=== PATIENT | female | born 1950 | race Caucasian/White ===

== ENCOUNTER 2016-10-31 14:10 | Inpatient (IN) | payer BC ==
[~2016-10-31] VITALS: Ht 170.2 cm; Wt 61.2 kg
[2016-10-31 14:10] VITALS: BP 106/63; PULSE 70; RESP 18; TEMP 98.4; O2SAT 99
--- NOTE | 2016-10-31 14:53 | NUR ---
Patient to ER bed 1 to gown for evaluation. Side rails up. Report given to
--- NOTE | 2016-10-31 14:57 | NUR ---
Pt reports having lower abd pain since yesterday. Pt states having nausea, vomiting, denies diarrhea. Lower abd pain tender to touch. Abd soft, warm skin on palpation. No other complaints noted. Addendum: 10/31/16 at 1538 by [email or web address] abd pain scale 8/10
--- NOTE | 2016-10-31 14:59 | NUR ---
ER Dr. Estrada at bedside examining patient.
[2016-10-31] MEDS ORDERED: NACL 0.9% 1,000 ML IV ONE (15:11)
[2016-10-31] MEDS ORDERED: KETOROLAC TROMETHAMINE 30 MG VIAL IVP ONE (15:15)
[2016-10-31 16:32] LABS: BASOPHILS % (AUTO) 0.3 % (0.0-2.0); HEMATOCRIT 40.1 % (36-48); HEMOGLOBIN 13.5 g/dL (12.0-16.0); LYMPHOCYTES # (AUTO) 0.5 K/uL (1.0-5.5); MEAN CORPUSCULAR HEMOGLOBIN 33 pg (27-31); MEAN CORPUSCULAR HGB CONC 34 % (32-36); MEAN CORPUSCULAR VOLUME 98 fL (79.0-98.0); MONOCYTES # (AUTO) 1.1 K/uL (0.0-1.0); NEUTROPHILS # (AUTO) 14.1 K/uL (1.8-7.7); NEUTROPHILS % (AUTO) 89.7 % (40.0-70.0); PLATELET COUNT (AUTO) 163 K/uL (130-430); RED BLOOD CELL COUNT(AUTO) 4.09 MIL/uL (4.2-6.2); RED CELL DISTRIBUTION WIDTH 12.2 % (9.0-15.0); WHITE BLOOD COUNT (AUTO) 15.7 K/uL (4.8-10.8)
[2016-10-31 16:38] LABS: CALCIUM 9.2 mg/dL (8.4-11.0); CHLORIDE 102 mmol/L (98-107); CREATININE 1.08 mg/dL (0.55-1.30); GFR AFRICAN AMERICAN 66 mL/min (>90); GLUCOSE 132 mg/dL (70-99); SODIUM SERUM 133 mmol/L (136-145); UREA NITROGEN, BLOOD 14 mg/dL (8-21)
[2016-10-31 16:39] LABS: ANION GAP < 3 (5-15)
[2016-10-31 16:44] LABS: ALANINE AMINOTRANSFERASE 82 U/L (12-78); ALBUMIN 3.6 g/dL (3.4-4.8); ASPARTATE AMINOTRANSFERASE 72 U/L (10-37); LIPASE 76 U/L (73-393); TOTAL BILIRUBIN 0.9 mg/dL (0.0-1.0); TOTAL PROTEIN, SERUM 7.1 g/dL (6.4-8.3)
[2016-10-31] MEDS ORDERED: PIPERACILLIN/TAZO 3.375 GM in NS 50 ML IV ONE (17:00)
--- NOTE | 2016-10-31 17:15 | NUR ---
Spoke w/ Dr. Estrada, stated will order blood cultures and lactic acids, will hold zosyn until drawn.
[2016-10-31] MEDS ORDERED: PIPERACILLIN/TAZOBACTAM 3.375 GM/VIAL (ZOSYN) IV ONE (17:17)
--- NOTE | 2016-10-31 17:20 | NUR ---
Stable condition, no distress noted.
[2016-10-31] MEDS ORDERED: LEVO175T7 PO (17:26)
[2016-10-31] MEDS ORDERED: CEL20 PO (17:26)
--- NOTE | 2016-10-31 17:26 | NUR ---
Medication reconciliation completed with information provided by patient. Any prior medication reconciliation on file was reviewed and corrected.
--- NOTE | 2016-10-31 17:27 | NUR ---
Patient's home medication sent home w/ , patient and educated that home medications can not be on floor and that admitting doctor will provide necessary medications.
[2016-10-31] MEDS ORDERED: ONDANSETRON HCL 4 MG/2 ML VIAL IVP PRN (17:45)
[2016-10-31] MEDS ORDERED: ACETAMINOPHEN 325 MG TABLET PO PRN (17:45)
[2016-10-31 18:00] LABS: BILIRUBIN,URINE NEGATIVE (NEGATIVE); BLOOD, URINE NEGATIVE (NEGATIVE); CLARITY/URINE CLEAR (CLEAR); COLOR,URINE YELLOW (YELLOW); GLUCOSE,URINE NEGATIVE (NEGATIVE); KETONES,URINE NEGATIVE (NEGATIVE); LEUKOCYTE ESTERASE ,URINE NEGATIVE (NEGATIVE); NITRITE, URINE NEGATIVE (NEGATIVE); PH,URINE 6.5 (5.0-8.0); PROTEIN URINE TRACE (NEGATIVE)
[2016-10-31 18:09] LABS: BACTERIA,URINE FEW /HPF (None Seen); MUCUS,URINE 2+ /LPF (None Seen); RBC,URINE 0-3 /HPF (0-3); WBC,URINE 0-3 /HPF (0-3)
--- NOTE | 2016-10-31 18:22 | NUR ---
Report given to admission nurse by Cliff TAVERAS, all questions addressed.
--- NOTE | 2016-10-31 18:26 | NUR ---
ADMISSION NOTE Received patient from ER via johny, received report from TEXTILE SUPERVISOR. Patient admitted with diagnosis of ACUTE CHOLECYSTITIS. Patient oriented to hospital routine, call light, toileting and safety-patient verbalized understanding.
[2016-10-31 18:28] VITALS: BP 93/55; PULSE 65; RESP 18; TEMP 98.5; O2SAT 96
--- NOTE | 2016-10-31 18:34 | NUR ---
CONSULTATION PAGED REASON FOR CONSULTATION:ACUTE ROWAN WAS CONSULT CALLED?Y PERSON WHO WAS NOTIFIED:ИВАН CONSULTING PHYSICIAN:ARTURO BELTRE (ERNESTINE VARGAS [employer]UTTER [employer] AT [phone] LEFT VOICEMAIL) CONING MACHINE OPERATOR SPECIALTY:GENERAL SURGEON CONING MACHINE OPERATOR PHONE NUMBER:[phone]
[2016-10-31] MEDS ORDERED: ALPR0.2583 PO (18:54)
--- NOTE | 2016-10-31 18:55 | NUR ---
CLOSING NOTE PATIENT IS CURRENTLY RESTING IN BED, IS AT BEDSIDE, STATED HE WILL BE TAKING ALL MEDICATIONS HOME, ALL NEEDS MET, WILL ENDORSE PATIENT TO TAPE CUTTING MACHINE OPERATOR NURSE, CALL REVELES LEFT NEXT TO PATIENT, BED IN LOWEST POSITION, BED ALARM ON, FALL PRECAUTION IN PLACE.
[2016-10-31] MEDS ORDERED: LEVO75TA7 PO (18:59)
--- NOTE | 2016-10-31 19:02 | NUR ---
HOME MEDICATIONS SENT HOME WITH PATIENT'S .
[2016-10-31 19:58] VITALS: BP 100/51; PULSE 66; RESP 18; TEMP 98.9; O2SAT 97
--- NOTE | 2016-10-31 19:59 | NUR ---
PM ASSESSMENT PT. A/OX4, VITAL SIGNS STABLE, NO DISTRESS NOTED, PT. REPORTS MILD PAIN TO LOWER ABDOMEN RATED "2/10 ACHING PAIN." PT. STATED "PAIN IS TOLERABLE, I DON'T WANT ANY PAIN MEDICATION RIGHT NOW." UPDATED WITH PLAN OF CARE. ASSISTED PT. TO BATHROOM, NOTED WITH SLOW STEADY GAIT. NURSES ASSISTANT WITH PT. TO ASSIST BACK TO BED.
[2016-10-31] MEDS: D5/0.45 NS 1,000 ML IV SCH (20:40)
[2016-10-31] MEDS: cefOXitin SODIUM 2 GM in D5W 100 ML IV SCH (20:40)
[2016-10-31] MEDS: PANTOPRAZOLE SODIUM 40 MG/VIAL (PROTONIX) IVP SCH (20:41)
--- NOTE | 2016-10-31 21:30 | NUR ---
RN ROUNDS PT. RESTING QUIETLY, VITAL SIGNS STABLE, NO DISTRESS NOTED, DENIES PAIN, CALL LIGHT WITHIN REACH, BED ALARM ON, BED IN LOWEST POSITION.
--- NOTE | 2016-10-31 23:30 | NUR ---
RN ROUNDS PT. RESTING QUIETLY, VITAL SIGNS STABLE, BP 97/53, DENIES DIZZINESS OR LIGHTHEADEDNESS, NO DISTRESS NOTED, DENIES PAIN, CALL LIGHT WITHIN REACH, BED ALARM ON, BED IN LOWEST POSITION.
[2016-11-01] VITALS (7 sets, daily range): BP systolic 97–112; BP diastolic 49–62; PULSE 59–67; RESP 16–18; TEMP 96.5–98.5; O2SAT 92–100
--- NOTE | 2016-11-01 01:30 | NUR ---
RN ROUNDS PT. RESTING QUIETLY, VITAL SIGNS STABLE, NO DISTRESS NOTED, DENIES PAIN, CALL LIGHT WITHIN REACH, BED ALARM ON, BED IN LOWEST POSITION.
--- NOTE | 2016-11-01 03:30 | NUR ---
RN ROUNDS PT. RESTING QUIETLY, VITAL SIGNS STABLE, NO DISTRESS NOTED, DENIES PAIN, CALL LIGHT WITHIN REACH, BED ALARM ON, BED IN LOWEST POSITION.
[2016-11-01] MEDS: MORPHINE 2 MG/ML INJ. SYRINGE IVP PRN ×2 (05:16→11:46)
--- NOTE | 2016-11-01 05:16 | NUR ---
PAIN PT. C/O OF MODERATE PAIN TO LOWER ABD RATED "6/10 ACHING PAIN", MORPHINE 2 MG IVP GIVEN ORDERED, WILL CONTINUE TO MONITOR.
--- NOTE | 2016-11-01 06:42 | NUR ---
CLOSING NOTES PT. RESTING QUIETLY, VITAL SIGNS STABLE, NO DISTRESS NOTED, DENIES PAIN. IV ACCESS PATENT AND BENIGN, CALL LIGHT WITHIN REACH.
[2016-11-01] MEDS: D5/0.45 NS 1,000 ML IV SCH ×2 (06:58→20:12)
[2016-11-01 07:10] LABS: ALBUMIN 2.8 g/dL (3.4-4.8); CALCIUM 8.4 mg/dL (8.4-11.0); CREATININE 1.05 mg/dL (0.55-1.30); TOTAL BILIRUBIN 0.8 mg/dL (0.0-1.0); TOTAL PROTEIN, SERUM 5.9 g/dL (6.4-8.3)
[2016-11-01 07:11] LABS: BASOPHILS % (AUTO) 0.1 % (0.0-2.0); EOSINOPHILS % (AUTO) 0.1 % (0.0-4.0); HEMOGLOBIN 11.7 g/dL (12.0-16.0); LYMPHOCYTES # (AUTO) 0.5 K/uL (1.0-5.5); MEAN CORPUSCULAR HEMOGLOBIN 33 pg (27-31); MEAN CORPUSCULAR HGB CONC 34 % (32-36); MEAN CORPUSCULAR VOLUME 99 fL (79.0-98.0); MONOCYTES # (AUTO) 0.8 K/uL (0.0-1.0); NEUTROPHILS # (AUTO) 11.3 K/uL (1.8-7.7); NEUTROPHILS % (AUTO) 89.8 % (40.0-70.0); PLATELET COUNT (AUTO) 146 K/uL (130-430); RED BLOOD CELL COUNT(AUTO) 3.53 MIL/uL (4.2-6.2); RED CELL DISTRIBUTION WIDTH 11.9 % (9.0-15.0); WHITE BLOOD COUNT (AUTO) 12.6 K/uL (4.8-10.8)
--- NOTE | 2016-11-01 08:10 | NUR ---
INITIAL NOTE PT RESTING, EASY TO AROUSE, ALERT AND OREINTED X4, NO S/S OF DISTRESS OR COMPLAINT OF PAIN, IV TO LEFT HAND PATENT AND INFUSING D51/2 NS AT ORDERED RATE, NO S/S OF INFILTRATION NOTED, SCDS IN PLACE, PLAN OF CARE DISCUSSED WITH PATIENT, PT VERBALIZED UNDERSTANDING, PT AWARE SHE IS NPO EXCEPT MEDICATIONS, PT IS AWARE THAT DIAGNOSTIC PROCEDURE IS SCHEDULED DIRECTOR PRISON FOR 9AM, PT MAY NOT HAVE PAIN MEDICATIONS BEFORE THAT TIME, SAFETY MEASURES IN PLACE, CALL LIGHT WITHIN REACH, WILL CONTINUE TO MONITOR
[2016-11-01] MEDS: cefOXitin SODIUM 2 GM in D5W 100 ML IV SCH ×2 (08:29→20:13)
[2016-11-01] MEDS: PANTOPRAZOLE SODIUM 40 MG/VIAL (PROTONIX) IVP SCH (08:29)
--- NOTE | 2016-11-01 09:05 | NUR ---
PATIENT PICKED UP FOR DIAGNOSTIC PROCEDURE, STABLE, NO S/S OF DISTRESS OR PAIN, WILL AWAIT RETURN
--- NOTE | 2016-11-01 09:40 | NUR ---
DR RODRIGUEZ MAKING ROUNDS, NEW ORDERS RECEIVED, PT AWARE, VERBALIZED UNDERSTANDING, WILL FOLLOW UP
[2016-11-01 09:58] LABS: INR 1.2 (0.8-1.2); PROTHROMBIN TIME 12.5 SECS (9.5-12.5)
--- NOTE | 2016-11-01 12:30 | NUR ---
DR MILES AT BEDSIDE, UPDATED PATIENT ON PLAN OF CARE, PT AGREED AND VERBALIZED UNDERSTANDING, WILL FOLLOW UPWITH CONSENT AND PREPARE FOR SURGERY
[2016-11-01] MEDS ORDERED: NS IRRIG SOLN 1000 ML IR ONE (14:00)
[2016-11-01] MEDS ORDERED: LR 1,000 ML IV.SOLN IV ONE (14:00)
[2016-11-01] MEDS ORDERED: SEVOFLURANE 15 MIN GAS INH ONE (14:00)
[2016-11-01] MEDS ORDERED: PROPOFOL 200MG/ 20ML VIAL (DIPRIVAN) IV ONE (14:00)
[2016-11-01] MEDS ORDERED: ONDANSETRON HCL 4 MG/2 ML VIAL ONE (14:00)
[2016-11-01] MEDS ORDERED: ROCURONIUM BROMIDE 10 MG/ML (ZEMURON) ONE (14:00)
[2016-11-01] MEDS ORDERED: fentaNYL CITRATE/PF 100 MCG/2 ML AMP ONE (14:00)
[2016-11-01] MEDS ORDERED: fentaNYL CITRATE 250 MCG/5 ML AMP ONE (14:00)
[2016-11-01] MEDS ORDERED: CEFAZOLIN 2 GM IVPB PREMIX 50 ML IV ONE (14:00)
[2016-11-01] MEDS ORDERED: MIDAZOLAM HCL 5 MG/5 ML VIAL ONE (14:00)
[2016-11-01] MEDS ORDERED: KETOROLAC TROMETHAMINE 30 MG VIAL ONE (14:00)
--- NOTE | 2016-11-01 14:30 | NUR ---
ROUNDS PT RESTING, NO S/S OF DISTRESS OR PAIN, EVEN RISE AND FALL OF CHEST NOTED, SAFETY MEASURES IN PLACE, CALL LIGHT WITHIN REACH, WILL CONTINUE TO MONITOR
--- NOTE | 2016-11-01 15:00 | NUR ---
CHG BATHE GIVEN, PATIENT READY FOR SURGERY, CONSENT SIGNED, PT AWARE AND AWAITING COMPUTER INSTRUCTOR, CALL LIGHT WITHIN REACH, WILL CONTINUE TO MONITOR
[2016-11-01 15:12] LABS: BILIRUBIN,URINE NEGATIVE (NEGATIVE); BLOOD, URINE NEGATIVE (NEGATIVE); CLARITY/URINE CLEAR (CLEAR); COLOR,URINE AMBER (YELLOW); GLUCOSE,URINE NEGATIVE (NEGATIVE); KETONES,URINE NEGATIVE (NEGATIVE); LEUKOCYTE ESTERASE ,URINE NEGATIVE (NEGATIVE); NITRITE, URINE NEGATIVE (NEGATIVE); PROTEIN URINE 2+ (NEGATIVE)
[2016-11-01 15:36] LABS: BACTERIA,URINE FEW /HPF (None Seen); HYALINE CASTS, URINE 0-10 /LPF (None Seen); MUCUS,URINE 2+ /LPF (None Seen)
--- NOTE | 2016-11-01 16:58 | NUR ---
PT PICKED UP BY OR FOR SURGERY. PT STABLE, AWAKE, ABLE TO MAKE NEEDS KNOWN, AT SIDE, WILL AWAIT RETURN
[2016-11-01] MEDS ORDERED: LR 1,000 ML IV SCH (17:25)
[2016-11-01] MEDS ORDERED: HYDROmorphone 2 MG/ML VIAL IVP PRN ×2 (17:30)
[2016-11-01] MEDS ORDERED: KETOROLAC TROMETHAMINE 30 MG VIAL IVP PRN (17:30)
[2016-11-01] MEDS ORDERED: HYDROmorphone 1 MG INJ. 1 MG/ML AMPUL IVP PRN ×2 (17:30→18:45)
[2016-11-01] MEDS ORDERED: IOHEXOL 50 ML IV ONE (17:32)
[2016-11-01] MEDS ORDERED: HYDROcodone/ACETAMIN 5-325 MG TAB (NORCO/ VICODIN) PO PRN ×2 (18:45)
[2016-11-01] MEDS ORDERED: ACETAMINOPHEN 325 MG TABLET PO PRN (18:45)
[2016-11-01] MEDS ORDERED: ONDANSETRON HCL 4 MG/2 ML VIAL IVP PRN (18:45)
--- NOTE | 2016-11-01 19:00 | NUR ---
CLOSING NOTE PT STILL NOT IN ROOM, REPORT GIVEN TO FOLLOWING SHIFT.
--- NOTE | 2016-11-01 19:30 | NUR ---
Patient back from PACU. A/O x 3, no SOB, mild nauseated, denied pain. Skin warm to touch, 3 dressing on ABD noted. SCD in place, +2 redial and pedal pulses. Call light within reach, bed at lowest position, family at bedside, will continue to monitor patient. VS 112/62/61, 18, 98, 94% FA.
--- NOTE | 2016-11-01 19:48 | NUR ---
C/o mild nauseated, ice chips and apple juice x 2 provided. Family at bedside. Patient denied pain.
[2016-11-01 19:55] LABS: HEMATOCRIT 37.1 % (36-48); HEMOGLOBIN 12.4 g/dL (12.0-16.0)
[2016-11-01] MEDS: FAMOTIDINE PF 20 MG/2 ML VIAL IVP SCH (20:13)
--- NOTE | 2016-11-01 22:00 | NUR ---
Rounds Resting/sleeping in bed, arousable. No SOB, no chest pain. Denied pain or N/V. Call light within reach, will continue to monitor patient.
--- NOTE | 2016-11-02 00:36 | NUR ---
Rounds Sleeping in bed. No SOB, no chest pain. No grimacing. Call light within reach, will continue to monitor patient.
--- NOTE | 2016-11-02 02:06 | NUR ---
Rounds Awake in bed, stretching legs, denied SOB, chest pain, pain or N/V. Call light within reach, will continue to monitor patient.
--- NOTE | 2016-11-02 04:33 | NUR ---
Rounds Awake in bed. No SOB, no chest pain, denied pain. A/O x 3. Noted IV at L hand infiltrated. Started a new IV at R hand #22 x 2 attempts with good blood return. DC old IV from L hand, IV catheter intact. Elevated patient L hand/arm with one pillow. Patient tolerated well. Provided cranberry juice x 2 and orange juice x 1. Educated patient to use Incentive spirometer (IS) 10 times while awake to prevent lung collapse. Patient is able to inhale 500 ml via IS. Patient stated mild nauseated, but refused med at this time. Call light within reach, bed at lowest position, will continue to monitor patient.
[2016-11-02 04:51] VITALS: BP 99/53; PULSE 60; RESP 16; TEMP 97.7; O2SAT 94
[2016-11-02 06:27] LABS: BASOPHILS % (AUTO) 0.1 % (0.0-2.0); EOSINOPHILS % (AUTO) 0.1 % (0.0-4.0); HEMATOCRIT 32.5 % (36-48); LYMPHOCYTES # (AUTO) 0.3 K/uL (1.0-5.5); MEAN CORPUSCULAR HEMOGLOBIN 33 pg (27-31); MEAN CORPUSCULAR HGB CONC 34 % (32-36); MEAN CORPUSCULAR VOLUME 99 fL (79.0-98.0); MONOCYTES # (AUTO) 0.3 K/uL (0.0-1.0); MONOCYTES % (AUTO) 3.1 % (1.7-9.3); NEUTROPHILS # (AUTO) 8.9 K/uL (1.8-7.7); NEUTROPHILS % (AUTO) 93.7 % (40.0-70.0); PLATELET COUNT (AUTO) 141 K/uL (130-430); RED BLOOD CELL COUNT(AUTO) 3.29 MIL/uL (4.2-6.2); RED CELL DISTRIBUTION WIDTH 11.7 % (9.0-15.0); WHITE BLOOD COUNT (AUTO) 9.5 K/uL (4.8-10.8)
--- NOTE | 2016-11-02 06:34 | NUR ---
Rounds Resting in bed, easy to be awaken. No SOB, no chest pain, denied pain, no N/V. Skin warm to touch, L hand/FA swollen. Elevated L hand/FA with one pillow. IV at R hand patent, no s/s of infection or infiltration. Call light within reach, SCD in place. Call light and incentive spirometer (IS) within reach, bed at lowest position, will continue to monitor patient.
[2016-11-02 06:43] LABS: ALBUMIN 2.5 g/dL (3.4-4.8); CALCIUM 8.3 mg/dL (8.4-11.0); CREATININE 1.08 mg/dL (0.55-1.30); POTASSIUM 4.5 mmol/L (3.5-5.1); TOTAL BILIRUBIN 0.4 mg/dL (0.0-1.0); TOTAL PROTEIN, SERUM 5.9 g/dL (6.4-8.3)
[2016-11-02] MEDS: D5/0.45 NS 1,000 ML IV SCH (06:59)
--- NOTE | 2016-11-02 07:32 | NUR ---
Closing note Patient resting/sleeping in bed. No SOB, no chest pain, no grimacing. Bed at lowest position, call light within reach. Report given to incoming nurse regarding patient condition, s/p surgery, SCD and IS use.
[2016-11-02 08:00] VITALS: BP 83/54; PULSE 57; RESP 16; TEMP 97.3
--- NOTE | 2016-11-02 08:00 | NUR ---
initial notes rec patient with hob elevated.ivf infusing well on the r hand. no infiltration noted. 2 abdominal sites on the abd dry and intact. no bleeding noted. resp easy and unlabored and no sob noted. ecourage patient to ambulate. denies pain. bed in low position and call light within reached. knows when to call for assistance.
[2016-11-02] MEDS: cefOXitin SODIUM 2 GM in D5W 100 ML IV SCH (08:58)
[2016-11-02] MEDS: FAMOTIDINE PF 20 MG/2 ML VIAL IVP SCH (09:10)
--- NOTE | 2016-11-02 09:15 | NUR ---
rounds seen by dr busch at bedside and with orders.
--- NOTE | 2016-11-02 11:00 | NUR ---
rounds ambulating on the hallway and lev well accompanied by nagat and .
[2016-11-02 12:07] VITALS: PULSE 57; RESP 18; TEMP 97.3
[2016-11-02 12:15] VITALS: BP 94/59; PULSE 58; RESP 19; TEMP 97.3; O2SAT 97
--- NOTE | 2016-11-02 13:11 | NUR ---
closing notes pt was discharged accompanied by . instruction re care of the incision provided, her prescription . ivl was removed and ib was put in the shredder. was wheeled outside by tawnya amor. stable , needs attended.
== END 2016-11-02 13:00 | disposition home or self-care (01) | DRG 419 ==
LOC: SED 14:10 → SMU 17:38
PROVIDERS: ADMIT Internal Medicine; ATTEND Internal Medicine
PROC: 0FN44ZZ Release Gallbladder, Percutaneous Endoscopic Approach (ICD-10-PCS; 2016-11-01)
PROC: BF101ZZ Fluoroscopy of Bile Ducts using Low Osmolar Contrast (ICD-10-PCS; 2016-11-01)
PROC: 0FT44ZZ Resection of Gallbladder, Percutaneous Endoscopic Approach (ICD-10-PCS; principal; 2016-11-01 17:30)
DX: K80.00 Calculus of gallbladder with acute cholecystitis without obstruction (principal); K82.8 Other specified diseases of gallbladder; F41.9 Anxiety disorder, unspecified; E03.9 Hypothyroidism, unspecified; F32.9 Major depressive disorder, single episode, unspecified; Z79.899 Other long term (current) drug therapy
CPT/HCPCS: 36415; 71020-TC; 76000; 78226; 80053; 81000-TC; 83605; 83690-TC; 83735-TC; 85018-TC; 85025; 85610-TC; 87040-TC; 87081; 88304; 93005; 96361; 96365; 96375; 99285; A9537; C1727; C1758; C9113; J0690; J0694; J1885; J2250; J2270; J2405; J2543; J2704; J3010; J3490; J7030; J7060; J7120; Q9967

== ENCOUNTER 2018-09-13 21:02 | Inpatient (IN) | payer OTHER, MEDICARE ==
[~2018-09-13] VITALS: Ht 167.6 cm; Wt 56.4 kg
[~2018-09-13 21:02] MED LIST: ALPR0.25 PO; CEL20 PO; LEVO175T7 PO; LEVO75TA7 PO
[2018-09-13 21:06] VITALS: BP_SYST 125
[2018-09-13] MEDS ORDERED: NACL 0.9% 1,000 ML IV ONE (21:24)
[2018-09-13] MEDS ORDERED: ASPIRIN 81 MG TAB.CHEW PO ONE (21:30)
[2018-09-13] MEDS ORDERED: NITROGLYCERIN 1 INCH (GM) OINT. TP ONE (21:30)
[2018-09-13 22:00] LABS: WHITE BLOOD COUNT (AUTO) 3.1 K/uL (4.8-10.8)
[2018-09-13 22:01] LABS: HEMATOCRIT 34.5 % (36-48); HEMOGLOBIN 11.9 g/dL (12.0-16.0); MEAN CORPUSCULAR HEMOGLOBIN 35 pg (27-31); MEAN CORPUSCULAR HGB CONC 35 % (32-36); MEAN CORPUSCULAR VOLUME 100 fL (79.0-98.0); PLATELET COUNT (AUTO) 173 K/uL (130-430); RED BLOOD CELL COUNT(AUTO) 3.46 MIL/uL (4.2-6.2); RED CELL DISTRIBUTION WIDTH 12.6 % (9.0-15.0)
[2018-09-13 22:03] LABS: ANION GAP 9 (5-15); CHLORIDE 104 mmol/L (98-107); CREATININE 1.01 mg/dL (0.55-1.30); GLUCOSE 93 mg/dL (70-99); POTASSIUM 3.7 mmol/L (3.5-5.1); SODIUM SERUM 139 mmol/L (136-145); UREA NITROGEN, BLOOD 27 mg/dL (8-21)
[2018-09-13 22:06] LABS: GFR AFRICAN AMERICAN 71 mL/min (>90)
[2018-09-13 22:07] LABS: PROTHROMBIN TIME 10.5 SECS (9.5-12.5)
[2018-09-13 22:12] LABS: ALANINE AMINOTRANSFERASE 112 U/L (12-78); ALBUMIN 3.6 g/dL (3.4-4.8); ASPARTATE AMINOTRANSFERASE 160 U/L (10-37); TOTAL BILIRUBIN 0.3 mg/dL (0.0-1.0)
[2018-09-13] MEDS ORDERED: MORPHINE 4 MG/ML INJ. SYRINGE IVP ONE (23:00)
[2018-09-13 23:02] LABS: BAND % (MANUAL) 5 % (0-6); BASOPHILS % (MANUAL) 0 % (0-2); EOSINOPHILS % (MANUAL) 1 % (0-7); LYMPHOCYTES % (MANUAL) 54 % (20-46); MONOCYTES % (MANUAL) 8 % (0-11)
[2018-09-13] MEDS ORDERED: MORPHINE 4 MG/ML INJ. SYRINGE IVP PRN (23:45)
[2018-09-13] MEDS ORDERED: HYDROcodone/ACETAMIN 5-325 MG TAB (NORCO/ VICODIN) PO PRN (23:45)
[2018-09-14 00:11] VITALS: BP_SYST 115
[2018-09-14] MEDS ORDERED: ACETAMINOPHEN 325 MG TABLET PO PRN (06:00)
[2018-09-14] MEDS ORDERED: HYDROcodone/ACETAMIN 5-325 MG TAB (NORCO/ VICODIN) PO PRN (07:00)
[2018-09-14] MEDS ORDERED: ZOLPIDEM TARTRATE 5 MG TABLET PO PRN (07:00)
[2018-09-14] MEDS ORDERED: LORazepam 2 MG/ML VIAL IVP PRN (07:00)
[2018-09-14] MEDS ORDERED: DOCUSATE SODIUM 100 MG CAPSULE PO PRN (07:00)
[2018-09-14] MEDS ORDERED: ALPRAZolam 0.25 MG TABLET PO PRN (07:00)
[2018-09-14] MEDS ORDERED: ONDANSETRON HCL 4 MG/2 ML VIAL IVP PRN (07:00)
[2018-09-14] MEDS ORDERED: LEVOTHYROXINE SODIUM 0.075 MG TABLET PO ONE (08:00)
[2018-09-14 08:40] VITALS: BP_SYST 96
[2018-09-14] MEDS: ASPIRIN 81 MG TAB.CHEW PO SCH (08:44)
[2018-09-14] MEDS: LISINOPRIL 10 MG TABLET (PRINIVIL) PO SCH (08:45)
[2018-09-14 08:49] LABS: CALCIUM 8.8 mg/dL (8.4-11.0); CREATININE 0.88 mg/dL (0.55-1.30); POTASSIUM 4.2 mmol/L (3.5-5.1)
[2018-09-14 08:50] LABS: HEMATOCRIT 38.3 % (36-48); HEMOGLOBIN 12.8 g/dL (12.0-16.0); MEAN CORPUSCULAR HEMOGLOBIN 34 pg (27-31); MEAN CORPUSCULAR HGB CONC 33 % (32-36); MEAN CORPUSCULAR VOLUME 101 fL (79.0-98.0); PLATELET COUNT (AUTO) 195 K/uL (130-430); RED BLOOD CELL COUNT(AUTO) 3.79 MIL/uL (4.2-6.2); RED CELL DISTRIBUTION WIDTH 12.8 % (9.0-15.0); WHITE BLOOD COUNT (AUTO) 3.7 K/uL (4.8-10.8)
[2018-09-14 08:51] LABS: BASOPHILS % (AUTO) 0.9 % (0.0-2.0); EOSINOPHILS % (AUTO) 1.1 % (0.0-4.0); LYMPHOCYTES # (AUTO) 1.1 K/uL (1.0-5.5); LYMPHOCYTES % (AUTO) 30.5 % (20.5-51.5); MONOCYTES # (AUTO) 0.3 K/uL (0.0-1.0); MONOCYTES % (AUTO) 7.1 % (1.7-9.3); NEUTROPHILS # (AUTO) 2.3 K/uL (1.8-7.7); NEUTROPHILS % (AUTO) 60.4 % (40.0-70.0)
[2018-09-14 08:59] LABS: PHOSPHORUS 3.6 mg/dL (2.7-4.5)
[2018-09-14] MEDS ORDERED: CITALOPRAM HYDROBROMIDE 20 MG TABLET PO SCH (09:00)
[2018-09-14 12:31] LABS: FREE T4 (FREE THYROXINE) 0.6 ng/dL (0.6-1.6); THYROID STIMULATING HORMONE 3.78 uIu/mL (0.34-4.82)
[2018-09-14 12:48] VITALS: BP_SYST 100
[2018-09-14] MEDS: NORMAL SALINE 5 ML DISP.SYRIN IVF SCH ×2 (13:04→20:13)
[2018-09-14 14:42] LABS: BILIRUBIN,URINE NEGATIVE (NEGATIVE); BLOOD, URINE NEGATIVE (NEGATIVE); CLARITY/URINE CLEAR (CLEAR); COLOR,URINE YELLOW (YELLOW); GLUCOSE,URINE NEGATIVE (NEGATIVE); KETONES,URINE NEGATIVE (NEGATIVE); LEUKOCYTE ESTERASE ,URINE NEGATIVE (NEGATIVE); NITRITE, URINE NEGATIVE (NEGATIVE); PROTEIN URINE NEGATIVE (NEGATIVE); UROBILINOGEN,URINE 0.2 (0.2-1.0)
[2018-09-14 15:09] LABS: BARBITURATE, URINE NEGATIVE (NEG <=200); BENZODIAZEPINE, URINE NEGATIVE (NEG <=150); CANNABINOID, URINE NEGATIVE (NEG <=50); COCAINE, URINE NEGATIVE (NEG <=150); METHAMPHETAMINES SCREEN,URINE NEGATIVE (NEG <=500); OPIATE, URINE NEGATIVE (NEG <=100); PHENCYCLIDINE SCREEN,URINE NEGATIVE (NEG <=25); URINE AMPHETAMINE NEGATIVE (NEG <=500); URINE METHADONE NEGATIVE (NEG <=200)
[2018-09-14 15:10] LABS: UR TRICYCLIC ANTIDEPRESSANTS NEGATIVE (NEG <=300); URINE OXYCODONE SCREEN NEGATIVE (NEG <=100); URINE PROPOXYPHENE SCREEN NEGATIVE (NEG <=300)
[2018-09-14 16:47] VITALS: BP_SYST 109
[2018-09-14 20:00] VITALS: BP_SYST 108
[2018-09-14] MEDS ORDERED: ATORVASTATIN 20 MG TABLET PO SCH (21:00)
[2018-09-15 01:44] VITALS: BP_SYST 97
[2018-09-15] MEDS: NORMAL SALINE 5 ML DISP.SYRIN IVF SCH (05:58)
[2018-09-15 06:15] LABS: CALCIUM 8.8 mg/dL (8.4-11.0); CREATININE 0.84 mg/dL (0.55-1.30); POTASSIUM 4.1 mmol/L (3.5-5.1)
[2018-09-15 06:23] LABS: ALBUMIN 3.3 g/dL (3.4-4.8); TOTAL BILIRUBIN 0.3 mg/dL (0.0-1.0)
[2018-09-15] MEDS ORDERED: LEVOTHYROXINE SODIUM 0.075 MG TABLET PO SCH (06:30)
[2018-09-15 07:30] VITALS: BP_SYST 109
[2018-09-15 07:44] LABS: HEMOGLOBIN 12.6 g/dL (12.0-16.0); RED BLOOD CELL COUNT(AUTO) 3.58 MIL/uL (4.2-6.2); WHITE BLOOD COUNT (AUTO) 2.8 K/uL (4.8-10.8)
[2018-09-15 07:45] LABS: MEAN CORPUSCULAR HEMOGLOBIN 35 pg (27-31); MEAN CORPUSCULAR HGB CONC 35 % (32-36); MEAN CORPUSCULAR VOLUME 101 fL (79.0-98.0); PLATELET COUNT (AUTO) 186 K/uL (130-430); RED CELL DISTRIBUTION WIDTH 12.8 % (9.0-15.0)
[2018-09-15] MEDS: LISINOPRIL 10 MG TABLET (PRINIVIL) PO SCH (08:46)
[2018-09-15] MEDS: ASPIRIN 81 MG TAB.CHEW PO SCH (08:48)
[2018-09-15] MEDS ORDERED: CITALOPRAM HYDROBROMIDE 20 MG TABLET PO SCH (09:00)
[2018-09-15 10:35] VITALS: BP_SYST 113
[2018-09-15 10:38] VITALS: BP_SYST 109
[2018-09-15 11:18] LABS: BASOPHILS % (MANUAL) 0 % (0-2); EOSINOPHILS % (MANUAL) 2 % (0-7); LYMPHOCYTES % (MANUAL) 64 % (20-46); MONOCYTES % (MANUAL) 3 % (0-11)
[2018-09-16 13:30] LABS: HEPATITIS A AB, IgM Negative (Negative); HEPATITIS B CORE AB, IgM Negative (Negative); HEPATITIS B SURFACE AG Negative (Negative)
== END 2018-09-15 16:37 | disposition home or self-care (01) | DRG 880 ==
LOC: SED 21:02 → STU 09-14 00:09
PROVIDERS: ADMIT Family Medicine; ATTEND Family Medicine
DX: F41.9 Anxiety disorder, unspecified (principal); J90 Pleural effusion, not elsewhere classified; K21.9 Gastro-esophageal reflux disease without esophagitis; E03.9 Hypothyroidism, unspecified; D72.819 Decreased white blood cell count, unspecified; R00.1 Bradycardia, unspecified; R74.0 Nonspecific elevation of levels of transaminase and lactic acid dehydrogenase [LDH]; Z90.49 Acquired absence of other specified parts of digestive tract; Z79.899 Other long term (current) drug therapy; Z82.49 Family history of ischemic heart disease and other diseases of the circulatory system
CPT/HCPCS: 36415; 71045; 76700-TC; 80048; 80053; 80061; 80074; 80307; 81003; 83036; 83690-TC; 83735-TC; 84100-TC; 84439; 84443-TC; 84484; 85007; 85025; 85027; 85379; 85610-TC; 85651-TC; 85730-TC; 93005; 93306; 96360; 99285; G0378; J2270